=== PATIENT | female | born 1955 | race Caucasian/White ===

== ENCOUNTER → 2023-05-17 15:11 | Outpatient (REF) | payer MEDICARE, OTHER, SELFPAY | LOC: HWWDC 15:11 | PROVIDERS: ATTENDING PHYSICIAN Family Medicine | DX: Z12.31 Encounter for screening mammogram for malignant neoplasm of breast (principal) | CPT/HCPCS: 77063; 77067 ==

== ENCOUNTER 2024-05-27 14:05 | Emergency (ER) | payer MEDICARE, OTHER, SELFPAY ==
[2024-05-27 14:10] VITALS: BP 139/98
[2024-05-27 14:45] LABS: % Basophils 0.8 % (0-2); % Eosinophils 1.3 % (0-6); % Lymphocytes 29.4 % (20.5-51.1); % Monocytes 10.9 % (1.7-9.3); % Neutrophils 57.6 % (42.2-75.2); Absolute Eosinophils 0.1 10^3/uL (0-0.7); Absolute Lymphocytes 1.5 10^3/uL (1.2-3.4); Absolute Monocytes 0.6 10^3/uL (0.1-0.6); Hemoglobin 13.3 g/dL (12.0-16.0); Mean Corp Hgb Conc. 34.1 g/dL (33.0-37.0); Mean Corpuscular Hgb 30.6 pg (27.0-31.0); Mean Corpuscular Volume 89.9 fL (81.0-99.0); Mean Platelet Volume 9.8 fL (7.4-10.4); Nucleated Red Blood Cells % 0 %; Platelet Count 303 10^3/uL (130-400); Red Blood Cell Count 4.34 10^6/uL (4.20-5.40); Red Cell Dist. Width 13.2 % (11.5-14.5); White Blood Cell Count 5.2 10^3/uL (4.8-10.8)
[2024-05-27 14:51] LABS: APTT 32.4 Sec (23.4-35.0); INR 0.97; PT 13.2 Sec (11.4-14.6)
[2024-05-27 14:55] LABS: ALT (SGPT) 20 U/L (0-35); AST (SGOT) 24 U/L (14-36); Albumin 4.7 g/dl (3.5-5.0); Alkaline Phosphatase 88 U/L (38-126); Blood Urea Nitrogen 11 mg/dl (7-17); Calcium 9.5 mg/dl (8.4-10.2); Carbon Dioxide 26 mmol/L (22-30); Chloride 101 mmol/L (98-107); Glucose 91 mg/dl (70-99); Sodium 136 mmol/L (135-145); Total Bilirubin 0.9 mg/dl (0.2-1.3); Total Protein 7.6 g/dl (6.3-8.2); eGFR > 60.00
[2024-05-27 15:07] LABS: Troponin I < 0.012 ng/ml
[2024-05-27 16:18] VITALS: BP 138/88
[2024-05-27 16:39] VITALS: BP 107/91
[2024-05-27 16:42] VITALS: BMI 23.2
[2024-05-27 17:00] VITALS: BP 126/74
--- NOTE | 2024-05-27 17:26 | ED.GENMED ---
History of Present Illness
General
Chief Complaint: Chest Pain
Source: patient
Exam Limitations: none
Time Seen by Provider: 05/27/24 17:08
Nursing documentation reviewed up to this point in time: agreed with
History of Present Illness
History of Present Illness:
68-year-old female presents emergency department due to chest pain that radiated down her left arm last night. She has had indigestion and belching. She has been on Brilinta for 3 days prior to her getting brain aneurysm surgery. She denies any
headache or chest pain at this time.
Past History
Past History
ED Past Medical History: Asthma, Cancer (Thyroid CA), GERD, Hypercholesterolemia, Hypothyroidism and Other (Rebecca's thyroiditis, alopecia, Vetigo,); Negative HTN or NIDDM
ED Past Surgical History: Gynecological (Tubel , Ovarian cyst removed) and Other (Thyroidectomy, Umbilical hernia, adhesion)
Social History
Tobacco: Non-smoker
Alcohol: Occasional
Personal:
Living: with family
Review of Systems
Review of Systems
Allergies reviewed?: Yes
All Other Systems: Not applicable
Constitutional: Reports no symptoms
EENT: Reports no symptoms
Respiratory: Reports no symptoms
Cardiac: Reports chest pain
ABD/GI: Reports no symptoms
: Reports no symptoms
Musculoskeletal: Reports no symptoms
Skin: Reports no symptoms
Neurological: Reports no symptoms
Endocrine: Reports no symptoms
Hematologic/Lymphatic: Reports no symptoms
Psychiatric: Reports no symptoms
Phy Exam
Physical Exam
Physical Exam:
Physical Exam
General: no apparent distress, not acutely ill
Neck: supple. no meningeal signs. normal posterior pharynx
Heart: s1/s2 regular rate and rhythm, no murmur. equal radial
pulses.
HEENT: Pupils equal round reactive to light, EOMI
Lungs: no acute respiratory distress. clear bilaterally
Abdomen: normal bowel sounds. not tender. no CVAT
Neuro: alert and oriented. no focal neurological deficits cranial nerves II through XII intact
Skin: no rash
Psychiatric: well kept. interactive and cooperative
Extremities: no edema. no calf tenderness. negative homans. good distal pulses
Scores
Heart Score for Chest Pain Patients
STEMI patient?: No
History: Slightly or Non-Suspicious
ECG: Normal
Age: >/= 65 years
Risk Factors: 1 or 2 Risk Factors
Troponin: </= Normal Limit
Heart Score for Chest Pain Patients: 3
Heart Score Risk: 2.5% MACE over next 6 weeks
Course
Orders/Labs/Results
Orders:
Orders
05/27/24 14:14
Electrocardiogram (*1) Urgent
Reason for Study: Chest Pain
05/27/24 14:15
EKG- Treatment ONCE
05/27/24 14:32
Complete Blood Count/With Diff Urgent
Comprehensive Metabolic Panel Urgent
Protime/PTT Urgent
Troponin I Urgent
05/27/24 17:29
CR Chest - 2 Views Urgent
Comment:
Reason For Exam: chest pain
Abnormal Lab Results
05/27/24
14:32
Monocytes % 10.9 H %
(1.7-9.3)
05/27/24 14:32
05/27/24 14:32
Vital Signs
Initial and Last Documented VS:
Initial Vital Signs
Temp Pulse Resp BP Pulse Ox
98.2 F 88 18 139/98 99
05/27/24 14:10 05/27/24 14:10 05/27/24 14:10 05/27/24 14:10 05/27/24 14:10
Last Documented Vital Signs
Temp Pulse Resp BP Pulse Ox
98.2 F 83 25 140/76 99
05/27/24 14:10 05/27/24 18:16 05/27/24 18:16 05/27/24 18:15 05/27/24 18:16
MDM/Problems Addressed
Differential Diagnosis Includes:
Aortic dissection, ACS, PE, pneumonia
MDM/Problems Addressed:
68-year-old female with chest pain, none while in ED. Negative troponin, normal EKG. Doubt ACS, PE, aortic dissection or pneumonia. Stable for discharge. Follow-up with primary care.
Chronic conditions affecting care: HTN
*Radiology
Radiology exam reviewed: preliminary read by ED provider (Chest x-ray no acute finding)
*Pulse Oximetry
Patient hypoxic: no
*EKG
Interpreted by ED Provider?: Yes
EKG Intrepretation Date: 05/27/24
EKG Intrepretation Time: 14:22
Interpretation: normal
Comparison EKG: changes noted
Heart Rate: 74
Rate: normal
Rhythm: sinus
[place]: normal axis
Interval: normal interval
QRS Pattern: normal QRS
Ischemia: no ischemia
*Assistant Community Director Interpretation
Rate: normal
Interpretation: normal
Heart Rate: 82
Rhythm: sinus
*Critical Care Note
Total Time (30-74mins, 75-104mins- exclusive of procedures): Not Applicable
Data Reviewed
Further Testing Considered But Not Given:
CT chest not indicated. Patient is asymptomatic
Patient Management
Social determinants of health affecting care: Living situation and Strong social support
Escalation/DeEscalation of care consider admission/obs:
Admit not indicated
ED Attending Note
-
Portions of this chart may have been created with voice recognition software.� Occasional wrong word or��sound alike� substitutions may have occurred due to the inherent limitations of voice recognition software.
Discharge Plan
Departure
Patient Disposition: Home (Routine Discharge)
Date of Disposition: 05/27/24
Time of Disposition: 18:34
Patient with high blood pressure during this ER visit?: Yes
Condition: Good
Discharge Problem:
Chest pain
Instructions: Chest Pain DCA Follow Up, BLOOD PRESSURE
Prescriptions:
No Action
levothyroxine [Synthroid] 88 MCG tablet
88 mcg PO Daily
meclizine 25 MG tablet
25 mg PO Q8HPRN PRN (Reason: Dizziness) Qty: 15 0RF
Interventions
Interventions:
*Risk Screen - Suicide Last Done: 05/27/24 14:10
*General Assessment Last Done: 05/27/24 14:10
*Neglect/Abuse Screening Last Done: 05/27/24 14:10
ED- Fall Risk Assessment Last Done: 05/27/24 16:42
*ED COVID-19 Vaccine History Last Done: 05/27/24 14:10
ED- Cardiac Assessment Last Done: 05/27/24 16:42
Discharge Date and Time
Print Language: FRENCH
[2024-05-27 18:15] VITALS: BP 140/76
== END 2024-05-27 18:51 | disposition home or self-care (01) ==
LOC: EMR 14:05
PROVIDERS: Student in an Organized Health Care Education/Training Program; EMERGENCY PHYSICIAN Emergency Medicine; FAMILY PHYSICIAN Internal Medicine
DX: R07.9 Chest pain, unspecified (principal); R03.0 Elevated blood-pressure reading, without diagnosis of hypertension
CPT/HCPCS: 99285; 71046; 80053; 84484; 85025; 85610; 85730; 93005

== ENCOUNTER → 2024-06-11 16:50 | Outpatient (REF) | payer MEDICARE, OTHER, SELFPAY | LOC: RAD 16:50 | PROVIDERS: ATTENDING PHYSICIAN Nurse Practitioner Family; FAMILY PHYSICIAN Internal Medicine | DX: R60.0 Localized edema (principal); M79.602 Pain in left arm | CPT/HCPCS: 93971 ==

== ENCOUNTER → 2024-07-18 12:53 | Outpatient (REF) | payer MEDICARE, OTHER, SELFPAY | LOC: RAD 12:53 | PROVIDERS: ATTENDING PHYSICIAN Nurse Practitioner Family | DX: R25.2 Cramp and spasm (principal); I87.2 Venous insufficiency (chronic) (peripheral) | CPT/HCPCS: 93922; 93925; 93970 ==

== ENCOUNTER 2024-09-09 21:33 | Emergency (ER) | payer MEDICARE, OTHER, SELFPAY ==
[2024-09-09 21:35] VITALS: BP 166/94
--- NOTE | 2024-09-09 23:07 | ED.GENMED ---
History of Present Illness
General
Chief Complaint: Head Injury
Source: patient
Exam Limitations: none
Time Seen by Provider: 09/09/24 23:04
Nursing documentation reviewed up to this point in time: agreed with
History of Present Illness
History of Present Illness:
This is a 68-year-old female with past medical history of brain aneurysm status postrepair, hypertension, GERD, hypothyroidism who presents emergency department today with concerns of a headache for the past 2 days. Patient reports that this
started after she hit her head. Patient reports that she was not her shed yesterday getting supplies out for gardening when a piece of Cedarwood fell off the top shelf of the shed and hit her on the left side of her head. Patient reports that she
immediately felt a wave of dizziness but did not lose consciousness. She did not fall. She denies any neck pain. She reports that later today she started develop a headache on the left side where the wood hit her. She also noticed a bump on her
head. She denies any open lacerations or abrasions. She reports that she gets daily headaches with her history of occipital migraines however this headache feels different. She denies any nausea or vomiting. She denies any weakness, difficulty
ambulating. She denies any weakness in one-sided body versus other. She denies any facial droop/speech difficulties/double vision/visual loss.
Past History
Past History
ED Past Medical History: Asthma, Cancer (Thyroid CA), GERD, Hypercholesterolemia, Hypothyroidism and Other (Rebecca's thyroiditis, alopecia, Vetigo,); Negative HTN or NIDDM
ED Past Surgical History: Gynecological (Tubel , Ovarian cyst removed) and Other (Thyroidectomy, Umbilical hernia, adhesion)
Social History
Tobacco: Non-smoker
Alcohol: Occasional
Personal:
Living: with family
Review of Systems
Review of Systems
All Other Systems: ROS reviewed and negative except as documented in HPI and ROS
Phy Exam
Physical Exam
Physical Exam:
General: Patient is well appearing and in no acute distress; non-toxic
Skin: Warm and dry, no rashes or lesions
Head: Left parietal scalp hematoma noted
Eyes: Sclera non-icteric. EOMs intact.
Neck: No midline spinal tenderness to palpation
Cardiac: Regular rate and rhythm, no murmurs
Peripheral Vascular: No lower extremity swelling or edema
Pulm: Normal respiratory effort
Neuro: CN II-XII intact, no focal neurologic deficits. Normal finger to nose, heel to self testing. Normal gait. Sensation grossly intact.
Psychiatric: Appropriate mood and affect.
Course
Orders/Labs/Results
Orders:
Orders
09/09/24 23:16
CT Cervical Spine W/o Iv Contr Urgent
Comment:
Reason For Exam: left sided headache, transient neck pain
CT Head W/o Iv Contrast Urgent
Comment:
Reason For Exam: left sided headache, head trauma
Vital Signs
Initial and Last Documented VS:
Initial Vital Signs
Temp Pulse Resp BP Pulse Ox
98.4 F 78 20 166/94 100
09/09/24 21:35 09/09/24 21:35 09/09/24 21:35 09/09/24 21:35 09/09/24 21:35
Last Documented Vital Signs
Temp Pulse Resp BP Pulse Ox
98.4 F 79 18 159/83 98
09/09/24 21:35 09/10/24 00:00 09/10/24 00:00 09/10/24 00:00 09/10/24 00:00
MDM/Problems Addressed
Differential Diagnosis Includes:
subdural hematoma, epidural hematoma, tension headache, concussion
MDM/Problems Addressed:
This is a 68-year-old female with past medical history of brain aneurysm status postrepair, hypertension, GERD, hypothyroidism who presents emergency department today with concerns of a headache for the past 2 days. This started after she was hit
in the head with a piece of wood. On exam, she does have a left sided parietal scalp hematoma but is in general well appearing, in no acute distress, has a non-focal reassuring neurologic exam. Her CT scans were negative for acute bleeding or acute
intracranial abnormality.
She is declining medication for pain at this time and states that she will take Tylenol when she gets home.
Patient stable for discharge and outpatient follow up.
Chronic conditions affecting care:
brain aneurysm s/p coiling, asthma, GERD, htn
*Pulse Oximetry
Patient hypoxic: no
*Critical Care Note
Total Time (30-74mins, 75-104mins- exclusive of procedures): Not Applicable
Data Reviewed
Review of Other/Old Records Reveals: Records (Reviewed ER physician documentation from 05/27/2024 patient seen for chest pain discharged with unremarkable workup)
Source: patient
ED Attending Note
-
Portions of this chart may have been created with voice recognition software.� Occasional wrong word or��sound alike� substitutions may have occurred due to the inherent limitations of voice recognition software.
Discharge Plan
Departure
Patient Disposition: Home (Routine Discharge)
Date of Disposition: 09/10/24
Time of Disposition: 00:33
Patient with high blood pressure during this ER visit?: Yes
Condition: Good
Discharge Problem:
Blunt head trauma
Instructions: Head Injury in Adults (DC), BLOOD PRESSURE
Prescriptions:
No Action
levothyroxine [Synthroid] 88 MCG tablet
88 mcg PO Daily
meclizine 25 MG tablet
25 mg PO Q8HPRN PRN (Reason: Dizziness) Qty: 15 0RF
Referrals:
Lakia Crisostomo CRNP [Family Provider] -
Activity Restrictions/Additional Instructions:
Please follow-up with your neurosurgeon.
PLEASE RETURN EMERGENCY DEPARTMENT SHOULD YOU DEVELOP CHEST PAIN, SHORTNESS OF BREATH, DIZZINESS, LIGHTHEADEDNESS, ACUTE WORSENING OF YOUR SYMPTOMS, WEAKNESS IN ONE-SIDED BODY VERSUS OTHER, DIFFICULTY AMBULATING, OR ANY OTHER SIGNS OR SYMPTOMS
WORRISOME TO YOU.
Interventions
Interventions:
*Risk Screen - Suicide Last Done: 09/09/24 21:35
*General Assessment Last Done: 09/10/24 00:41
*Neglect/Abuse Screening Last Done: 09/09/24 21:35
*ED- Fall Risk Assessment Last Done: 09/10/24 00:39
*ED COVID-19 Vaccine History Last Done: 09/10/24 00:39
*Nursing Disposition Last Done: 09/10/24 00:41
ED- Neurological Assessment Last Done: 09/09/24 23:15
ED-Skin Assessment Last Done: 09/09/24 23:15
Discharge Date and Time
Discharge Date/Time: 09/10/24 00:41
Print Language: BHUTANESE
[2024-09-10] VITALS: BP 159/83
== END 2024-09-10 00:41 | disposition home or self-care (01) ==
LOC: EMR 21:33
PROVIDERS: EMERGENCY PHYSICIAN Student in an Organized Health Care Education/Training Program; FAMILY PHYSICIAN Nurse Practitioner Family
DX: S09.90XA Unspecified injury of head, initial encounter (principal); W22.8XXA Striking against or struck by other objects, initial encounter; I10 Essential (primary) hypertension; K21.9 Gastro-esophageal reflux disease without esophagitis; E06.3 Autoimmune thyroiditis; J45.909 Unspecified asthma, uncomplicated; Z85.850 Personal history of malignant neoplasm of thyroid; Z86.79 Personal history of other diseases of the circulatory system
CPT/HCPCS: 99284; 70450; 72125